=== PATIENT | male | born 1990 | race Caucasian/White ===

== ENCOUNTER 2018-03-18 00:17 | Emergency (ER) | payer SELFPAY ==
[2018-03-18] MEDS ORDERED: fentaNYL PF VIAL 100 MCG/2 ML VIAL (00:28)
[2018-03-18] MEDS: DIPHTH,PERTUSS(ACELL),TET TOX 0.5 ML DISP.SYRIN. VAX IM (00:30)
[2018-03-18] MEDS: fentaNYL PF VIAL 100 MCG/2 ML VIAL IV ×2 (00:35→02:26)
[2018-03-18] MEDS ORDERED: KETAMINE HCL 500 MG/10 ML VIAL. (00:41)
[2018-03-18] MEDS: KETAMINE HCL 500 MG/10 ML VIAL. IV (00:45)
[2018-03-18] MEDS ORDERED: ONDANSETRON PF 4 MG/2 ML VIAL. (00:52)
[2018-03-18] MEDS: ONDANSETRON PF 4 MG/2 ML VIAL. IV (00:55)
[2018-03-18 01:08] LABS: ADD MAN DIFF? NO
[2018-03-18 01:14] LABS: BILIRUBIN,URINE NEGATIVE (NEG); CLARITY,URINE CLEAR; COLOR,URINE YELLOW; GLUCOSE,URINE NEGATIVE (NEG); NITRITE,URINE NEGATIVE (NEG); PROTEIN,URINE NEGATIVE (NEG-TRACE); UROBILINOGEN,URINE 0.2 mg/dL (0.2 mg/dL)
[2018-03-18 01:17] LABS: BASO # 0.1 x10^3/uL (0.0-0.2); BASO % 1 % (0-3); EOS # 0.1 x10^3/uL (0.0-0.7); EOS % 1 % (0-3); HEMATOCRIT 41.6 % (39.0-53.0); HEMOGLOBIN 14.4 g/dL (13.0-17.5); LYMPH # 2.7 x10^3/uL (1.0-4.8); LYMPH % 30 % (24-48); MEAN CORPUSCULAR HEMOGLOBIN 31 pg (25-35); MEAN CORPUSCULAR HGB CONC 35 g/dL (31-37); MEAN CORPUSCULAR VOLUME 89 fL (79-100); MONO # 0.6 x10^3/uL (0.0-1.1); MONO % 7 % (0-9); NEUT # 5.6 x10^3uL (1.8-7.7); NEUT % 61 % (31-73); PLATELET COUNT 274 x10^3/uL (140-400); RED BLOOD COUNT 4.67 x10^6/uL (4.30-5.70); WHITE BLOOD COUNT 9.1 x10^3/uL (4.0-11.0)
[2018-03-18 01:20] LABS: INR 0.9 (0.8-1.1)
[2018-03-18 01:21] LABS: BARBITURATES NEG (NEG); BENZODIAZEPINES NEG (NEG); CANNABINOIDS NEG (NEG); COCAINE NEG (NEG); METHADONE NEG (NEG); OPIATES NEG (NEG); PHENCYCLIDINE NEG (NEG)
[2018-03-18 01:26] LABS: AMPHETAMINE/METHAMPHETAMINE NEG (NEG); ETHANOL, URINE POS (NEG)
[2018-03-18 01:26] LABS: ETHANOL 106 mg/dL (0-10)
[2018-03-18 01:31] LABS: BACTERIA,URINE 0 /HPF (0-FEW); RBC,URINE 0 /HPF (0-2); SQUAMOUS EPITHELIAL CELL,UR OCC /LPF; WBC,URINE 0 /HPF (0-4)
[2018-03-18 01:33] LABS: ANION GAP 10 (6-14); BLOOD UREA NITROGEN 10 mg/dL (8-26); BUN/CREATININE RATIO 11 (6-20); CALCIUM 9.1 mg/dL (8.5-10.1); CARBON DIOXIDE 25 mmol/L (21-32); CHLORIDE 103 mmol/L (98-107); CREATININE 0.9 mg/dL (0.7-1.3); GFR 102.8; GLUCOSE 105 mg/dL (70-99); POTASSIUM 3.5 mmol/L (3.5-5.1); SODIUM 138 mmol/L (136-145)
[2018-03-18 01:35] LABS: ALBUMIN 4.4 g/dL (3.4-5.0); ALBUMIN/GLOBULIN RATIO 1.1 (1.0-1.7); ALK PHOS 110 U/L (46-116); ALT (SGPT) 19 U/L (16-63); AST (SGOT) 18 U/L (15-37); TOTAL BILIRUBIN 0.6 mg/dL (0.2-1.0); TOTAL PROTEIN 8.5 g/dL (6.4-8.2)
[2018-03-18] MEDS ORDERED: CONTRAST GIVEN. MC (02:15)
[2018-03-18] MEDS: IOHEXOL 300 MG/ML 100ML VIAL. IV (02:30)
[2018-03-18] MEDS: HYDROcodone/APAP 5/325MG 1 TAB TABLET PO (03:45)
[2018-03-18] MEDS: BACITRACIN TOPICAL OINT 14GM TUBE. TP (03:45)
== END 2018-03-18 03:40 | disposition home or self-care (01) ==
LOC: ER 00:17
DX: S30.810A Abrasion of lower back and pelvis, initial encounter (principal); M25.551 Pain in right hip; Z88.0 Allergy status to penicillin; Z88.2 Allergy status to sulfonamides; V29.9XXA Motorcycle rider (driver) (passenger) injured in unspecified traffic accident, initial encounter; Y93.89 Activity, other specified; Y92.89 Other specified places as the place of occurrence of the external cause; Y99.8 Other external cause status
CPT/HCPCS: 36415; 70450; 70486; 71045; 71260; 72125; 72170; 73080; 74177; 80053; 80307; 81001; 85025; 85610; 96374; 96375; 96376; 99285-25; G0480; J2405; J3010; J3490; Q9967